=== PATIENT | male | born 1970 | race Two or more races ===

== ENCOUNTER → 2024-08-03 | Outpatient (CLI) | payer BC, SELFPAY ==
--- NOTE | 2024-08-03 | XR_ITS ---
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
--- NOTE | 2024-08-03 13:56 | XR_ITS ---
Examination: Left knee 2 views Technique one AP lateral left knee 2 views Exam date 9: August 03, 2024 and 35 hours INDICATIONS: Left knee pain years, patient states bone disorder FINDINGS: Osteocartilaginous exostoses distal femoral shaft proximal fibula and proximal tibia Severe osteopenia Total left knee arthroplasty with satisfactory alignment No loosening of the prosthetic components No fracture IMPRESSION: Total left knee arthroplasty with satisfactory alignment
--- NOTE | 2024-08-03 13:56 | XR_ITS ---
Examination: Lumbar spine, 5 views Technique: Lumbar spine AP, lateral, coned lateral lower lumbar spine, bilateral obliques 5 views Exam date and time: August 03, 2024 1431 hours INDICATIONS: Low back pain years FINDINGS: Mild osteopenia Adequate alignment lumbar vertebral bodies on the lateral view Mild to moderate diffuse lumbar disc narrowing most prominent L4-L5, L5-S1 No spondylolisthesis Mild lumbar spondylosis IMPRESSION: Diffuse [id number] lumbar degenerative disc disease, most prominent L4-L5, L5-S1
== END | disposition home or self-care (01) ==
PROVIDERS: PCP Orthopaedic Surgery; Referring Provider Orthopaedic Surgery; Visit Provider Orthopaedic Surgery
DX: M51.369 Other intervertebral disc degeneration, lumbar region without mention of lumbar back pain or lower extremity pain (principal); M51.379 Other intervertebral disc degeneration, lumbosacral region without mention of lumbar back pain or lower extremity pain; M25.562 Pain in left knee; Z96.652 Presence of left artificial knee joint; M89.9 Disorder of bone, unspecified
CPT/HCPCS: 72110; 72170; 73560

== ENCOUNTER 2025-01-09 12:10 | Day surgery (SDC) | payer MEDICAID, SELFPAY ==
[2025-01-08 14:28] VITALS: BMI 28.7
[2025-01-09] VITALS (17 sets, daily range): BP systolic 102–145; BP diastolic 68–93; PULSE 52–74; RESP 12–19; TEMP 36.7–37.1; O2SAT 97–100; BMI 28.5
[2025-01-09] MEDS: RINGERS LACTATED 1000 ML 1,000 ML 100 ML IV (13:12)
[2025-01-09] MEDS: fentaNYL CIT INJ 50 mCg/ML AMP 2ML (ASD USE ONLY) IVP (13:17)
[2025-01-09] MEDS: MIDAZOLAM INJ 1 MG/ML VIAL 2 ML (ASD USE ONLY) 2 MG IVP ×4 (13:17→13:57)
[2025-01-09] MEDS: DiphenhydrAMINE INJ 50 MG/ML VIAL 25 MG IVP ×2 (13:17→13:50)
== END 2025-01-09 15:20 | disposition home or self-care (01) ==
PROVIDERS: PCP Surgery; Referring Provider Surgery; Visit Provider Surgery
PROC: 0DBE8ZX Excision of Large Intestine, Via Natural or Artificial Opening Endoscopic, Diagnostic (ICD-10-PCS; CPT 45380; principal; 2025-01-09 13:45)
DX: Z12.11 Encounter for screening for malignant neoplasm of colon (principal); D12.4 Benign neoplasm of descending colon; D12.5 Benign neoplasm of sigmoid colon
CPT/HCPCS: 45380; 45385; A4217; A4649; J1200; J2250; J3010; J7120